=== PATIENT | female | born 1995 | race American Indian/Alaskan Native ===

== ENCOUNTER 2016-12-30 18:07 | Inpatient (IN) | payer OTHER ==
[2016-12-30] MEDS ORDERED: Penicillin G 5 Million Unit Vial IVPB ONE (18:18)
--- NOTE | 2016-12-30 19:00 | OBADHP ---
Datetime: 12/30/2016 18:31 Admit Comment, IP Provider: Chief complaint-post term HPI 21 y/o at 40.6 wga here for scheduled induction of labor.Patient denies nausea, vomiting, headache, chest pain, shortness of breath, burning or stinging vulvar pain course complicated by genital herps outbreak; gbs positive; care at [facility] PMH mitral regurg PSH deneis OBGYN HX ; Hx of genital herpes Social hx-hx of smoking in past.denies alcohol or illicit drug use Meds-valtrex, vitamins Family hx prostate cancer; htn, dm, stroke Exam see exam section A/P 21 y/o at 40.6 wga here for induction of labor.GBS positive.clinically no evidence of her pes on vulva or vagina.patient denies any symptoms.FHT nonreactive -admit -iv fluids bolus -monitor closely Pelvic Type - PN: Adequate Extremities - PN: Normal Abdomen - PN: Normal Back - PN: Normal Lungs - PN: Normal Heart - PN: Normal Neurologic - PN: Normal General - PN: Normal Presentation-Admit: Vertex FHR - Baseline A Provider: 160 Contraction Comments Provider: irregular Comments, ACOG Physical Exam: Vulva no lesions; no ulcers Vagina no ulcers; no discharge; normal appearing mucosa Cervix no lesions Adnexa no adnexal tenderness Gestation - Est Wks by US: 40.6 IP Hx Assessment: The History has been Reviewed and is Current Vital Signs Provider: Reviewed; Within Normal Limits NICHD Variability Prov Fetus A: Moderate 6-25bpm NICHD Decel Fetus A IP Provider: None Dilatation, Provider: 0 Effacement, Provider: thick Station, Provider: high Genitourinary Exam: Normal DTRs - PN: Normal IP Adm Impression: Postterm, intrauterine ; No Active Labor IP Admit Plan: Admit to unit; Initiate labor induction protocol
[2016-12-30 19:07] LABS: BASO % 0.4 % (0.0-2.0); EOS # 0.1 K/uL (0.0-0.7); EOS % 0.5 % (0.0-4.0); HEMOGLOBIN 11.3 g/dL (11.0-16.0); LYMPH # 1.8 K/uL (1.0-4.3); LYMPH % 18.4 % (20.0-40.0); MEAN CELL VOLUME 76.6 fL (81.0-99.0); MEAN CORPUSCULAR HEMOGLOBIN 23.9 pg (27.0-31.0); MEAN CORPUSCULAR HGB CONC 31.3 g/dL (33.0-37.0); MEAN PLATELET VOLUME 8.7 fL (7.2-11.7); MONO # 0.8 K/uL (0.0-0.8); MONO % 7.8 % (0.0-10.0); NEUT # 7.1 K/uL (1.8-7.0); NEUT % 72.9 % (50.0-75.0); RBC 4.71 Mil/uL (3.80-5.20); RED CELL DISTRIBUTION WIDTH 14.2 % (11.5-14.5); WHITE BLOOD COUNT 9.8 K/uL (4.8-10.8)
[2016-12-30 19:18] LABS: ALBUMIN 3.7 g/dL (3.5-5.0)
[2016-12-30 19:21] LABS: AST/SGOT 17 U/L (14-36); GFR AFRICAN-AMERICAN > 60; GFR NON-AFRICAN AMERICAN > 60
[2016-12-30 19:22] LABS: ALB/GLOB RATIO 1.1 (1.0-2.1); ALT/SGPT 21 U/L (9-52); BLOOD UREA NITROGEN 10 mg/dL (7-17); CALCIUM 9.1 mg/dl (8.6-10.4)
[2016-12-30] MEDS: Lactated Ringer's 1,000 ML IV SCH (19:35)
--- NOTE | 2016-12-30 19:37 | OBPN ---
Datetime: 12/30/2016 19:31 IP Progress Plan Other: cervidil placed IP Progress Impression: Reassuring heart rate IP Procedures: Sterile Vag Exam IP Progress Plan: Cervical Ripening Contraction Comments Provider: irregular Gestation - Est Wks by US: 40.6 Weight - Estimated: 3200 Presentation-Admit: Vertex IP Progress Note Comment: S-patient denies any complaints O-VSS Afebrile Fht cat1 [place] occ ctx sve closed,thick and high A/P Patient being induced for post term ; hx of hsv.no active lesions seen on exam today. GB positive -cervidil placed -pen g for GBS ordered.start with regular contractions -continue to monitor closely Vital Signs Provider: Reviewed; Within Normal Limits FHR Category Provider Fetus A: Category I Dilatation, Provider: 0 Datetime: 12/30/2016 18:31 FHR - Baseline A Provider: 160 NICHD Variability Prov Fetus A: Moderate 6-25bpm Effacement, Provider: thick Station, Provider: high NICHD Decel Fetus A IP Provider: None
[2016-12-30] MEDS ORDERED: Nalbuphine 20 mg/ml Inj (1 ml) IVP PRN (19:45)
[2016-12-30 19:58] LABS: SQUAMOUS EPITHIAL 2 /hpf (0-5); URINE BILIRUBIN NEGATIVE (NEGATIVE); URINE BLOOD NEGATIVE (NEGATIVE); URINE CLARITY Clear (Clear); URINE COLOR Straw (YELLOW); URINE GLUCOSE (UA) NORMAL (Normal); URINE LEUKOCYTE ESTERASE NEG Leu/uL (Negative); URINE NITRATE NEGATIVE (NEGATIVE); URINE PROTEIN NEGATIVE (NEGATIVE); URINE UROBILINOGEN NORMAL mg/dL (0.2-1.0)
[2016-12-30 20:11] LABS: BARBITURATES, UR NEGATIVE (NEGATIVE); BENZODIAZEPINES, UR NEGATIVE (NEGATIVE)
[2016-12-30 20:17] LABS: OPIATES, UR NEGATIVE (NEGATIVE); PHENCYCLIDINE, UR NEGATIVE (NEGATIVE)
[2016-12-31] MEDS: Lactated Ringer's 1,000 ML IV SCH ×2 (09:00→19:24)
--- NOTE | 2016-12-31 09:51 | OBPN ---
Datetime: 12/31/2016 09:15 IP Procedures Other: Cervidil placement IP Progress Impression Other: Cervical ripening IP Progress Plan: Cervical Ripening; Anticipate Vaginal Delivery Membranes, Provider: Intact Contraction Comments Provider: irregular FHR - Baseline A Provider: 145 Gestation - Est Wks by US: 41.0 Weight - Estimated: 3518 Presentation-Admit: Vertex IP Progress Note Comment: Patient was seen, examined and evaluated at 0725 hours, at which time cerv lj was removed. Patient was not able to tolerate cervical exam; cervical status unclear. At that time, patient was allowed to ambulate and shower. Patient then re-evaluated at 0900 hours: exam as above. Cervidil #2 placed in posterior vaginal va ult. Of note: (+) AFM; denies LOF, VB, Ctx. It was shared with patient that she is having occasional contractions. Assessment: 21 y.o. P0, 41 weeks, IOL; HSV2, was on suppressive therapy (last dose 12/30/16). GBS ( +) - to start peinicllin when in active labor. Category 1 tracing. Plan: 1) Clear liquid x 1 2) Cervidil placed as above 3) Continue presnet management 4) Anticipate vaginal delivery Vital Signs Provider: Reviewed; Within Normal Limits NICHD Accel Fetus A IP Provider: 15X15 FHR Category Provider Fetus A: Category I NICHD Variability Prov Fetus A: Moderate 6-25bpm Dilatation, Provider: 1 Effacement, Provider: 30 Station, Provider: -3 NICHD Decel Fetus A IP Provider: None
[2016-12-31] MEDS ORDERED: Penicillin G 5 Million Unit Vial IVPB ONE (13:51)
[2016-12-31] MEDS ORDERED: Sodium Citrate/Citric Acid 15 ml Sol PO ONE (21:35)
[2016-12-31] MEDS ORDERED: Clindamycin 600mg/50ml D5W 600 MG/50 ML VIAL IVPB SCH (21:45)
[2016-12-31] MEDS ORDERED: Clindamycin 600mg/50ml D5W 600 MG/50 ML VIAL IVPB ONE (22:52)
[2016-12-31] MEDS ORDERED: Sodium Citrate/Citric Acid 15 ml Sol ONE (22:53)
[2016-12-31] MEDS ORDERED: Oxytocin 20 units in LR 2,000 ML IV ONE (23:30)
--- NOTE | 2016-12-31 23:48 | OBPN ---
Datetime: 12/31/2016 21:08 Membranes, Provider: Intact Contraction Comments Provider: irregular FHR - Baseline A Provider: 145 Gestation - Est Wks by US: 41.0 IP Progress Note Comment: Cervidil removed at 2100 hours; V.E. as above. Patient reports increasing uterine contractions, pain scale 6/10. (+) FM It was discussed with patient continuing trial of labor with intracervical balloon. Patient declin ed and requested abdominal delivery Assessment: 21 y.o. P0, 41 weeks, S/P cervidil x 2, no significnt cervical change; requesting abdo mnal delivery. GBS (+) S/P penicillin x 3 doses. Category 1 tracing. R/B/C discussed with patient. No questions offered. Consents signed, dated, witnessed and placed in chart. Clinically stable. Plan: 1) Hawley 2) Abdominal prep and shave 3) Notify anesthesia 4) Notiy peds 5) Clindamycin irrigation service technician to O.R. 6) irrigation service technician to O.R. NICHD Accel Fetus A IP Provider: 15X15 FHR Category Provider Fetus A: Category I NICHD Variability Prov Fetus A: Moderate 6-25bpm Dilatation, Provider: 1 Effacement, Provider: 20 Station, Provider: -3 NICHD Decel Fetus A IP Provider: None
[2017-01-01] MEDS ORDERED: Oxycodone/Acetaminophen 5/325 mg Tab PO PRN (01:11)
--- NOTE | 2017-01-01 01:20 | PCM.SURG1 ---
Surgeon's Initial Post Op Note - Surgeon's Notes Surgeon: Sommer Landry MD Case Management Rn: Mike Jacobs MD Type of Anesthesia: Spinal Anesthesia Administered By: Gage Rain DO Pre-Operative Diagnosis: 41 weeks, failed induction of labor. GBS (+) Operative Findings: Live female , weight 8lb 9oz, TIERNEY position, Apgars 9/ 9. Normal uterus; normal ovaries and fallopian tubes, bilateraly Post-Operative Diagnosis: Same Operation Performed: Primary transverse lower uterine segment Caesarean section Specimen/Specimens Removed: None Estimated Blood Loss: EBL {In ML}: 800 (U.O. 6oo cc; IVFs 1000 cc) Blood Products Given: N/A Drains Used: No Drains Post-Op Condition: Good Date of Surgery/Procedure: 01/01/17 Time of Surgery/Procedure:
--- NOTE | 2017-01-01 01:38 | OBDS ---
DELIVERY PERSONNEL Delivery Doctor: Jaz Landry MD Scrub Nurse: Cecilia Rooney Paper Rewinder: Kathryn Schaeffer RN Anesthesiologist: Koffi SHANNON MATERNAL INFORMATION Delivery Anesthesia: Spinal Medications in Delivery: Pitocin 20 units IV Estimated Blood Loss (ml): 600 Maternal Complications: None Provider Comments: Uncomplicated primary LTCS with atraumatic delivery of live female 8lb 9oz , Apgars 9/9 LABOR SUMMARY EDC: 12/24/2016 00:00 No. Babies in Womb: 1 Attempted: No Labor Anesthesia: None LABOR INFORMATION Reason for Induction Other: 41 weeks gestation Cervical Ripening Agents: cervidil removed Other Ripening Agents: Cervidil removed by Dr. Landry Oxytocin: N/A Group B Beta Strep: Positive Antibiotics # of Doses: 3 Antibiotics Time of Last Dose: 2216 Steroids Given: None Reason Steroids Not Administered: Not Applicable MEMBRANES Membranes Rupture Method: Artificial Rupture of Membranes: 01/01/2017 00:10 Length of Rupture (hrs): 0.03 Amniotic Fluid Color: Clear Amniotic Fluid Amount: Moderate Amniotic Fluid Odor: Normal STAGES OF LABOR Stage 3 hrs: 0 Stage 3 min: 1 CSECTION DELIVERY Primary Indication: Failed Induction CSection Urgency: Non Elective CSection Incidence: Primary Labor: Labor Elective: Nonelective CSection Incision: Lower Uterine Transverse BABY A INFORMATION Delivery Date/Time: 01/01/2017 00:12 Method of Delivery: SHOULDER DYSTOCIA BABY A Infant Delivery Date/Time: 01/01/2017 00:12 PRESENTATION/POSITION BABY A Presentation: Cephalic Cephalic Presentation: Vertex PLACENTA INFORMATION BABY A Placenta Delivery Time : 01/01/2017 00:13 Placenta Method of Delivery: Manual Removal Placenta Status: Delivered SCORES BABY A Heart Rate 1 min: >100 bpm Resp Effort 1 min: Good Cry Reflex Irritability 1 min: Cough or Sneeze or Pulls Away Muscle Tone 1 min: Active Motion Color 1 min: Body [place], Extremities Blue SCORE 1 MIN: 9 Heart Rate 5 min: >100 bpm Resp Effort 5 min: Good Cry Reflex Irritability 5 min: Cough or Sneeze or Pulls Away Muscle Tone 5 min: Active Motion Color 5 min: Body [place], Extremities Blue SCORE 5 MIN: 9 INFANT INFORMATION BABY A Gestational Age at Delivery: 41.0 Gestational Status: Term Infant Outcome : Liveborn Condition : Stable Sex: Female IDENTIFICATION/MEDS BABY A ID Band Number: [id number] ID Band Location: Left Leg; Left Arm Sensor Applied: Yes Sensor Number: [id number] Sensor Location : Cord Clamp Vitamin K Given : Aquamephyton 1 mg IM; Left Thigh Erythromycin Given: Given Both Eyes WEIGHT/LENGTH BABY A Birthweight (gms): 3895 Infant Weight (lb): 8 Weight (oz): 9 Infant Length Inches: 20.50 Infant Length cms: 52.1 CORD INFORMATION BABY A No. Cord Vessels: 3 Nuchal Cord : N/A Cord Blood Taken: Yes Suction: Mouth; Nose ASSESSMENT BABY A Complications: None Physical Findings at Delivery: Within Normal Limits Infant Respirations: Appears Normal Care By: Dr Munoz Transferred To: Remains with Mother
--- NOTE | 2017-01-01 05:53 | OP ---
PROCEDURE DATE: 01/01/2017 PREOPERATIVE DIAGNOSES: A 41 weeks' gestation, failed induction of labor, GBS positive. POSTOPERATIVE DIAGNOSES: A 41 weeks' gestation, failed induction of labor, GBS positive. SURGEON: Sommer Landry MD INDUSTRIAL WASTE INSPECTOR: Mike Jacobs MD. ANESTHESIOLOGIST: Gage Rain DO. TYPE OF ANESTHESIA: Spinal. OPERATION PERFORMED: Primary transverse lower uterine segment section. OPERATIVE FINDINGS: Live female infant on the left occiput anterior position. Weight 8 pounds 9 ounces. is 9 and 9 at one and five minutes respectively. Normal uterus and normal ovaries and fallopian tubes bilaterally. SPECIMENS: None. ESTIMATED BLOOD LOSS: 850 mL. URINE OUTPUT: 600 mL. IV FLUIDS: 1000 mL of lactated Ringers. BLOOD PRODUCTS: None. COMPLICATIONS: None. DESCRIPTION OF PROCEDURE: The patient was taken to the operating room after having obtained informed consent for the anticipated procedure. This included a discussion of possible risks and complications including, but not limited to infection requiring blood transfusion, infection requiring antibiotics, hemorrhage requiring blood transfusion, repair of any damage to internal organs, and possible hysterectomy. Patient's questions were answered. Consent was signed, dated, witnessed and placed in the chart. The patient had received penicillin as a result before and just prior to OR, she received the dose of clindamycin. A Hawley catheter was also inserted under sterile conditions before the patient was escorted to the operating room. In the operating room, on the operating room table, she was placed in a sitting position where spinal anesthesia was administered without incident. She was repositioned into supine position and abdomen was prepped and draped in the usual sterile fashion. Also showing an adequate level of anesthesia, Pfannenstiel incision was made on the skin using the scalpel. The incision was carried down to the subcutaneous tissue using the Bovie and electrocautery. The fascia was identified, it was nicked in the midline and the incision was extended bilaterally using the Bovie electrocautery. The overlying fascia was dissected off the rectus muscle. The rectus muscle was identified in the midline and it was and the abdominal cavity was entered by blunt dissection. The vesicouterine reflection was identified and a bladder flap was created. A transverse incision was then made on the lower uterine segment, amniotomy was performed and a copious amount of clear amniotic fluid was obtained. Delivery of live female infant with the findings as above then ensued. Once in the operative field, the infant's mouth and nose were doubly clamped as the umbilical cord. The infant's mouth and nose were bulb suctioned as the umbilical cord is doubly clamped and cut. The was handed off operative field to the molder foam rubber in attendance. Manual delivery of the placenta ensued, it was grossly intact with 3 vessels present in the cord. The uterus was then exteriorized for closure. This was done in 2 layers using 0 Vicryl. The first layer was in a running interlocking fashion and second layer was a horizontal imbricating fashion. Hemostasis was assured additionally using additional sutures of 2-0 Biosyn. Decision was made to place Surgicel along the uterine incision line and the bladder flap was reapproximated using 2-0 chromic in a running fashion. Attention was then directed to the posterior uterine area. Findings as above. Copious irrigation was performed. The uterus was returned to the abdominal cavity. The paracolic gutters were cleared of all debris and adequate hemostasis was assured on each angle. The parietal peritoneum was then re-approximated using 2-0 chromic in a running fashion and the rectus muscles were re-approximated using 2-0 chromic in a running fashion. The cord *------* was re-approximated using 0 Vicryl in 1 suture. The subcutaneous tissue was re-approximated using 2 plain gut in a running fashion, and the skin was re-approximated using surgical clips. A pressure dressing was applied. Bimanual examination was performed and uterus was emptied of its clots. It was firm and contracted about 2 fingers breadths below the umbilicus. The patient tolerated the procedure well, she was transferred to the recovery room in stable condition. Infant had been transferred to the [facility] also in stable condition. Sommer MD Frantz
[2017-01-01] MEDS ORDERED: Clindamycin 600mg/50ml NS 600 MG/50 ML BAG IVPB SCH (07:00)
--- NOTE | 2017-01-01 08:30 | OBPPN ---
Datetime: 01/01/2017 08:24 PP Pain Prov: Within normal limits PP Nausea Prov: Present PP Flatus Prov: No PP BM Prov: No PP Breasts Prov: Normal PP Heart Prov: Normal PP Lungs Prov: Normal PP Abdomen/Uterus Prov: Normal PP Lochia Prov: Normal PP Vulva/Perineum Prov: Normal PP CVA Tenderness Prov: Normal PP Extremities Prov: Normal PP C/S Incision Prov: Normal PP Progress Prov: Not Applicable PP Impression Prov: Normal progression PP Plan Prov: Continue present management PP Progress Note Prov: pt seen and examined and reports pain is controlled with medication. pt is no t yet ambualting. Pt has spencer cathether. pt had vomiting x 1 green/ yellow this mornign non bloody a nd reports feeling better and would like something to drink. Pt denies any fevers, chills, current na usea or vomiting, CP, SOB. pt does not want an IV even though hydration recommened. VSS PE: GEN NAD, AAOx 3 BREAST: NT, Non engorbed b/l CVS: RRR, +S1/S2 RESP: CTAB/l ABD: soft, appropriately TTP over incision, no guarding, no rebound tenderness, no rigidity, +BS INCSION: C/D/I Fuduns: Firm, at level of umbilicus, minimal lochia, non foul smelling EXT: negative homans sign, negative calf tenderness a/p s/p PLTCS CxS POD #0/1 with postoperative vomiting -declined IVF/IV nause medication, although advised of improtance -N/V: Phenegan 25mg IM q x 1 N/V -Diet: If no N/v , attempt Clear liquid diet 12pm -d/c spencer -Activity: out of bed with assistance, encourage ambuation -pain managment: percocet/motrin -encourage breast feeding -f/u AM labs: CBC, BMP -Abdominal binder/incentive spirometer IP PP Procedures: None Vital Signs Provider PP: Reviewed; Within Normal Limits
[2017-01-01] MEDS: Simethicone 80 mg Chewtab PO SCH ×4 (11:25→21:55)
[2017-01-01] MEDS: Prenatal Multivit/Folic Acid/Iron Tab PO SCH (11:26)
[2017-01-01 12:01] LABS: MEAN CORPUSCULAR HGB CONC 31.2 g/dL (33.0-37.0); MEAN PLATELET VOLUME 8.7 fL (7.2-11.7); RBC 3.62 Mil/uL (3.80-5.20); RED CELL DISTRIBUTION WIDTH 14.1 % (11.5-14.5); WHITE BLOOD COUNT 12.1 K/uL (4.8-10.8)
[2017-01-01 12:06] LABS: HEMOGLOBIN 8.7 g/dL (11.0-16.0)
[2017-01-01 12:24] LABS: GFR AFRICAN-AMERICAN > 60; GFR NON-AFRICAN AMERICAN > 60
[2017-01-01 12:25] LABS: BLOOD UREA NITROGEN 5 mg/dL (7-17); CALCIUM 8.3 mg/dl (8.6-10.4)
[2017-01-01 17:15] LABS: BASO % 0.2 % (0.0-2.0); EOS % 0.1 % (0.0-4.0); HEMOGLOBIN 9.1 g/dL (11.0-16.0); LYMPH # 1.1 K/uL (1.0-4.3); LYMPH % 7.8 % (20.0-40.0); MEAN CORPUSCULAR HGB CONC 31.6 g/dL (33.0-37.0); MEAN PLATELET VOLUME 8.4 fL (7.2-11.7); MONO % 7.1 % (0.0-10.0); NEUT # 12.5 K/uL (1.8-7.0); NEUT % 84.8 % (50.0-75.0); PLATELET COUNT 238 K/uL (130-400); RBC 3.78 Mil/uL (3.80-5.20); RED CELL DISTRIBUTION WIDTH 13.8 % (11.5-14.5); WHITE BLOOD COUNT 14.7 K/uL (4.8-10.8)
[2017-01-01 18:40] LABS: BANDS 2 % (0-2); LYMPHOCYTE 4 % (20-40); MONOCYTE 5 % (0-10); NEUTROPHIL 89 % (50-75); TOTAL CELLS COUNTED 100
[2017-01-01 18:41] LABS: PLATELET ESTIMATE NORMAL (NORMAL)
[2017-01-02] MEDS: Oxycodone/Acetaminophen 5/325 mg Tab PO PRN ×2 (07:41→12:52)
[2017-01-02 07:56] VITALS: O2SAT 98
[2017-01-02] MEDS: Simethicone 80 mg Chewtab PO SCH ×3 (09:04→23:00)
[2017-01-02] MEDS: Prenatal Multivit/Folic Acid/Iron Tab PO SCH (09:05)
--- NOTE | 2017-01-02 11:38 | OBPPN ---
Datetime: 01/02/2017 11:35 PP Pain Prov: Within normal limits PP Nausea Prov: Denies PP Flatus Prov: Yes PP BM Prov: Yes PP Breasts Prov: Normal PP Heart Prov: Normal PP Lungs Prov: Normal PP Abdomen/Uterus Prov: Normal PP Lochia Prov: Normal PP Vulva/Perineum Prov: Normal PP CVA Tenderness Prov: Normal PP Extremities Prov: Normal PP C/S Incision Prov: Normal PP Progress Prov: Normal PP Impression Prov: Normal progression PP Plan Prov: Continue present management PP Progress Note Prov: pt seen and examined and reports pain is controlled with medication. Pt is am buating, voiidng, passing flatus, +BM, tolerating regular diet, breast feeding. pt denies any fevers, chills, nausea, vomiting, CP, SOB, lightheadnes, dizzyness. VSS PE: GEN NAD, AAOx 3 BREAST: NT, Non engorbed b/l CVS: RRR, +S1/S2 RESP: CTAB/l ABD: soft, NT/ND, no guarding, no rebound tenderness, no rigidity, +BS INCSION: C/D/I healing well Fuduns: Firm, below level of umbilicus, minimal lochia, non foul smelling EXT: negative homans sign, negative calf tenderness a/p s/p PLTCS CxS POD #2 doing well with asympomatic acute blood loss anemia currenlty stable -Anemia: Ferrous suflate/ colace -Cotineu current manamgnet -Diet: regular -Activity: out of bed with assistance, encourage ambuation -pain managment: percocet/motrin -encourage breast feeding -Abdominal binder/incentive spirometer IP PP Procedures: None Vital Signs Provider PP: Reviewed; Within Normal Limits Datetime: 01/01/2017 08:24 PP Comments Phys Exam Prov: see below for PE Vital Signs Provider Details PP: nausea/ vomiting x 1 post section
[2017-01-02] MEDS ORDERED: Bisacodyl 5mg EC Tab PO ONE ×2 (14:34→16:15)
[2017-01-02 16:14] VITALS: RESP 20
[2017-01-03 00:08] VITALS: BP 122/71; PULSE 94; TEMP 97.2
[2017-01-03] MEDS: Oxycodone/Acetaminophen 5/325 mg Tab PO PRN ×2 (06:10→13:43)
--- NOTE | 2017-01-03 07:34 | OBPPN ---
Datetime: 01/03/2017 07:31 PP Pain Prov: Within normal limits PP Nausea Prov: Denies PP Flatus Prov: Yes PP Abdomen/Uterus Prov: Normal PP Lochia Prov: Normal PP Extremities Prov: Normal PP C/S Incision Prov: Normal PP Comments Phys Exam Prov: fudus below umblicus ext no edema,no calf tyen incision clean and dry PP Impression Prov: Normal progression PP Plan Prov: Discharge PP Progress Note Prov: pt was seen at bed side, pain under control,no n/v, tolerating deit, voiding, min lochia, flatus+ pod#3 s/p c/s dc home no sex percoxcet, pn f/u on /tuesday for maurice Vital Signs Provider PP: Reviewed; Within Normal Limits
--- NOTE | 2017-01-03 07:34 | OBDCSUM ---
Datetime: 01/03/2017 07:32 Discharged to, Provider: Home Follow up at, Provider: /tuesday Disch Instr Diet: Regular Discharge Diagnosis, Provider: Term Delivered Follow up in weeks, Provider: clinic Disch Activity Restrictions: No exercising; No lifting; No driving; Minimize walking; Minimize stair -climbing; No sexual activity; Nothing in vagina - [place], tampons, douche Discharge Comment, Provider: no sex motrin pern f/u onn /tuesday fpr maurice Discharge Diagnosis Prov Other: s/p c/s
[2017-01-03] MEDS: Simethicone 80 mg Chewtab PO SCH ×3 (09:02→17:44)
[2017-01-03] MEDS: Prenatal Multivit/Folic Acid/Iron Tab PO SCH (09:03)
== END 2017-01-03 20:30 | disposition home or self-care (01) | DRG 371 ==
LOC: C.EROB 18:07 → C.4D 18:19 → C.4M 01-01 03:45
PROVIDERS: ADMIT Student in an Organized Health Care Education/Training Program; ATTEND Student in an Organized Health Care Education/Training Program
PROC: 3E0P7GC Introduction of Other Therapeutic Substance into Female Reproductive, Via Natural or Artificial Opening (ICD-10-PCS; 2016-12-30)
PROC: 10D00Z1 Extraction of Products of Conception, Low, Open Approach (ICD-10-PCS; principal; 2017-01-01)
DX: O48.0 Post-term pregnancy (principal); O61.9 Failed induction of labor, unspecified; O99.824 Streptococcus B carrier state complicating childbirth; O99.820 Streptococcus B carrier state complicating pregnancy; Z87.891 Personal history of nicotine dependence; Z3A.41 41 weeks gestation of pregnancy; Z37.0 Single live birth